=== PATIENT | female | born 1975 | race Caucasian/White ===

== ENCOUNTER 2017-10-01 17:47 | Observation (INO) ==
[2017-10-01] MEDS ORDERED: 0.9 % Sodium Chloride 1,000 ML IVC ONE (22:32)
--- NOTE | 2017-10-01 22:39 | Emergency Department Note ---
Disposition Clinical Impression: Failure to thrive in adult Disposition: Admitted As Inpatient Condition: Good General Adult HPI - General Chief complaint: ED Psychiatric Symptoms Stated complaint: "Something telling her not to eat" Time Seen by Provider: 10/01/17 22:22 Source: patient, family Mode of arrival: private vehicle Limitations: no limitations Nursing Notes Reviewed: Yes Vital Signs Reviewed: Yes - History of Present Illness Pt Subjective Complaint: Pt states, "I am here because my psychiatrist told my family to bring me." Onset (ago): week(s) Location: other (no pain, just won't eat and won't take meds) Pain Scale: 0 Improves with: nothing Worsens with: nothing Associated symptoms: Reports: denies other symptoms Treatments Prior to Arrival: none - Related Data Home Medications Medication Instructions Recorded Confirmed Metoprolol [Lopressor] 50 mg PO HS 01/06/17 09/25/17 Metoprolol [Lopressor] 100 mg PO DAILY 01/06/17 09/25/17 metFORMIN [Glucophage] 500 mg PO BIDWM 01/06/17 09/25/17 Tobramycin/Dex Opth OINT [Tobradex 0 gm RIGHT EYE BID 04/02/17 09/25/17 Opth OINT] Zolpidem [Ambien] 5 mg PO HS 09/06/17 09/25/17 Previous Rx's Medication Instructions Recorded OLANZapine [Zyprexa Zydis] 10 mg PO HS 7 Days #7 tab.rapdis 09/21/17 Allergies Allergy/AdvReac Type Severity Reaction Status Date / Time Sulfa (Sulfonamide Allergy Hives Verified 09/20/17 16:46 Antibiotics) All systems ED: reviewed and negative except as stated. Review of Systems: As Per HPI Constitutional: Reports: weakness. Denies: fever, chills Cardiovascular: Denies: chest pain, palpitations, dyspnea on exertion, orthopnea , edema, syncope Respiratory: Denies: cough, dyspnea, wheezes Gastrointestinal: Denies: abdominal pain, nausea, vomiting Musculoskeletal: Denies: back pain, neck pain, joint swelling, arthralgia, myalgia Neurological: Denies: headache, weakness, numbness, paresthesias Hematological/Lymphatic: Denies: easy bleeding, easy bruising Past Medical History - Past Medical History Attestation: Yes The following information was validated with the patient. Source: patient Medical history: Reports: diabetes, hypertension, other Surgical history: Reports: non-contributory Psychiatric history: Reports: depression, other - Social History Smoking Status: Former smoker Smokeless Tobacco Status: No Alcohol use: Reports: none Drug use: Reports: none Physical Exam - General Limitations: no limitations General appearance: alert, in no apparent distress - Head Head exam: atraumatic, normocephalic, normal inspection - Eye Eye exam: Absent: scleral icterus, conjunctival injection, periorbital swelling - ENT ENT exam: mucous membranes dry - Neck Neck exam: Present: normal inspection, full ROM, trachea midline. Absent: meningismus - Chest Chest inspection: Present: normal inspection - Respiratory Respiratory exam: Present: normal lung sounds bilaterally. Absent: respiratory distress - Cardiovascular Cardiovascular exam: Present: regular rate, normal rhythm, normal heart sounds - Abdominal Exam Abdominal exam: Present: soft, Non-Tender - Extremities Exam Extremities exam: Present: normal inspection - Neurological Exam Neurological exam: Present: alert, oriented X3, CN II-XII intact - Psychiatric Psychiatric exam: Present: normal mood, flat affect - Skin Skin exam: Present: warm, dry, intact, normal color Course Course Narrative: PAtient presents from home with family for evaluatiuon of anorexia +/- auditory hallucinations. This is the patient's third evaluation for same. She tells me that she is here because her psychiatrist was concerned about dehydration and other potential problems from not taking her medications. Her states that she says there are voices telling her not to eat and that the food is poisoned. Labs and fluids have been ordered. Physical exam is benign. Labs indicate dehydration. EKG normal, unchanged. Will admit for FTT. Vital Signs Temperature 98.3 F 10/01/17 17:49 Pulse Rate 85 10/01/17 17:49 Respiratory Rate 16 10/01/17 17:49 Blood Pressure 94/54 10/01/17 17:49 O2 Sat by Pulse Oximetry 98 10/01/17 17:49 Temperature 97.9 F 10/02/17 03:25 Pulse Rate 74 10/02/17 03:25 Respiratory Rate 16 10/02/17 03:25 Blood Pressure 91/60 10/02/17 03:25 O2 Sat by Pulse Oximetry 95 10/02/17 03:25 Oxygen Delivery Oxygen Delivery Room Air Medical Decision Making - Medical Records Medical records reviewed: Yes I reviewed the patient's medical records. - Lab Data Lab results reviewed: Yes I reviewed the patient's lab results. Lab results narrative: Laboratory Last Values WBC 11.4 K/mcL (4.3-11.1) H 10/01/17 22:48 RBC 5.92 M/mcL (3.82-4.97) H 10/01/17 22:48 Hgb 17.1 g/dL (11.5-15.4) H 10/01/17 22:48 Hct 52.8 % (35.3-44.9) H 10/01/17 22:48 MCV 89.2 fL (83.0-100.0) 10/01/17 22:48 MCH 28.9 pg (28.0-33.3) 10/01/17 22:48 MCHC 32.4 g/dL (31.6-35.5) 10/01/17 22:48 RDW 18.3 % (11.5-14.5) H 10/01/17 22:48 Plt Count 237 K/mcL (140-400) 10/01/17 22:48 MPV 13.4 fL (9.4-12.4) H 10/01/17 22:48 Immature Gran % 0.4 % (0-4) 10/01/17 22:48 Seg Neutrophils % 47.7 % 10/01/17 22:48 Lymphocytes % 36.3 % 10/01/17 22:48 Monocytes % 13.8 % 10/01/17 22:48 Eosinophils % 1.1 % 10/01/17 22:48 Basophils % 0.7 % 10/01/17 22:48 Neutrophils # 5.4 K/mcL (1.6-8.9) 10/01/17 22:48 Lymphocytes # 4.1 K/mcL (0.6-4.6) 10/01/17 22:48 Monocytes # 1.6 K/mcL (0.0-1.3) H 10/01/17 22:48 Eosinophils # 0.1 K/mcL (0.0-0.6) 10/01/17 22:48 Basophils # 0.1 K/mcL (0.0-0.2) 10/01/17 22:48 Sodium 146 mEq/L (136-145) H 10/01/17 22:48 Potassium 3.6 mEq/L (3.5-5.1) 10/01/17 22:48 Chloride 105 mEq/L (98-107) 10/01/17 22:48 Carbon Dioxide 25 mEq/L (23-29) 10/01/17 22:48 BUN 10 mg/dL (6-20) 10/01/17 22:48 Creatinine 0.77 mg/dL (0.60-1.20) 10/01/17 22:48 Est GFR ( Amer) > 60 (> 60) 10/01/17 22:48 Est GFR (Non-Af Amer) > 60 (> 60) 10/01/17 22:48 BUN/Creatinine Ratio 13 (6-26) 10/01/17 22:48 Glucose 72 mg/dL (70-105) 10/01/17 22:48 Calculated Osmolality 300 (280-300) 10/01/17 22:48 Calcium 9.7 mg/dL (8.6-10.3) 10/01/17 22:48 Urine Color Hickory (Yellow) A 10/01/17 23:15 Urine Clarity Cloudy (Clear) A 10/01/17 23:15 Urine pH 6.0 pH Units (5.0-8.0) 10/01/17 23:15 Ur Specific Jackson 1.029 (1.010-1.025) H 10/01/17 23:15 Urine Protein 30 mg/dL (Neg-Trace) H 10/01/17 23:15 Urine Glucose (UA) Normal mg/dL (Normal) 10/01/17 23:15 Urine Ketones 80 mg/dL (Negative) H 10/01/17 23:15 Urine Blood Negative (Negative) 10/01/17 23:15 Urine Nitrite Negative (Negative) 10/01/17 23:15 Urine Bilirubin Large (Negative) H 10/01/17 23:15 Urine Urobilinogen 2.0 mg/dL (Normal) H 10/01/17 23:15 Ur Leukocyte Esterase Small (Negative) H 10/01/17 23:15 Urine Microscopic WBC 5-15 per hpf (0-3) H 10/01/17 23:15 Ur Squamous Epith Cells Many per lpf (None-Few) H 10/01/17 23:15 Urine Bacteria Moderate per hpf (None-Few) H 10/01/17 23:15 Urine Test Negative (Negative) 10/01/17 23:15 Salicylates < 2.5 mg/dL (15.0-30.0) L 10/01/17 22:48 Urine Opiates Screen Negative ng/mL (Mvoifn=073) 10/01/17 23:15 Acetaminophen < 10 mcg/mL (10-20) L 10/01/17 22:48 Ur Barbiturates Screen Negative ng/mL (Ethspo=239) 10/01/17 23:15 Ur Phencyclidine Scrn Negative ng/mL (Cutoff=25) 10/01/17 23:15 Ur Amphetamines Screen Negative ng/mL (Ewytym=9938) 10/01/17 23:15 U Benzodiazepines Scrn Negative ng/mL (Vetqwr=002) 10/01/17 23:15 Urine Cocaine Screen Negative ng/mL (Cutoff= 300) 10/01/17 23:15 U Marijuana (THC) Screen Negative ng/mL (Cutoff = 50) 10/01/17 23:15 Ethyl Alcohol < 10 mg/dL (Less than 10) 10/01/17 22:48 Result diagrams: 10/01/17 22:48 10/01/17 22:48 Lab Results 10/01/17 10/01/17 10/01/17 Range/Units 22:48 22:48 23:15 WBC 11.4 H (4.3-11.1) K/mcL RBC 5.92 H (3.82-4.97) M/mcL Hgb 17.1 H (11.5-15.4) g/dL Hct 52.8 H (35.3-44.9) % MCV 89.2 (83.0-100.0) fL MCH 28.9 (28.0-33.3) pg MCHC 32.4 (31.6-35.5) g/dL RDW 18.3 H (11.5-14.5) % Plt Count 237 (140-400) K/mcL MPV 13.4 H (9.4-12.4) fL Immature Gran % 0.4 (0-4) % Seg Neutrophils % 47.7 % Lymphocytes % 36.3 % Monocytes % 13.8 % Eosinophils % 1.1 % Basophils % 0.7 % Neutrophils # 5.4 (1.6-8.9) K/mcL Lymphocytes # 4.1 (0.6-4.6) K/mcL Monocytes # 1.6 H (0.0-1.3) K/mcL Eosinophils # 0.1 (0.0-0.6) K/mcL Basophils # 0.1 (0.0-0.2) K/mcL Sodium 146 H (136-145) mEq/L Potassium 3.6 (3.5-5.1) mEq/L Chloride 105 (98-107) mEq/L Carbon Dioxide 25 (23-29) mEq/L BUN 10 (6-20) mg/dL Creatinine 0.77 (0.60-1.20) mg/dL Est GFR ( Amer) > 60 (> 60) Est GFR (Non-Af Amer) > 60 (> 60) BUN/Creatinine Ratio 13 (6-26) Glucose 72 (70-105) mg/dL Calculated Osmolality 300 (280-300) Calcium 9.7 (8.6-10.3) mg/dL Urine Color [place]ickory A (Yellow) Urine Clarity Cloudy A (Clear) Urine pH 6.0 (5.0-8.0) pH Units Ur Specific Jackson 1.029 H (1.010-1.025) Urine Protein 30 H (Neg-Trace) mg/dL Urine Glucose (UA) Normal (Normal) mg/dL Urine Ketones 80 H (Negative) mg/dL Urine Blood Negative (Negative) Urine Nitrite Negative (Negative) Urine Bilirubin Large H (Negative) Urine Urobilinogen 2.0 H (Normal) mg/dL Ur Leukocyte Esterase Small H (Negative) Urine Microscopic WBC 5-15 H (0-3) per hpf Ur Squamous Epith Cells Many H (None-Few) per lpf Urine Bacteria Moderate H (None-Few) per hpf Urine Test (Negative) Salicylates < 2.5 L (15.0-30.0) mg/dL Urine Opiates Screen (Umjvcm=316) ng/mL Acetaminophen < 10 L (10-20) mcg/mL Ur Barbiturates Screen (Bysdee=533) ng/mL Ur Phencyclidine Scrn (Cutoff=25) ng/mL Ur Amphetamines Screen (Chqzpk=7872) ng/mL U Benzodiazepines Scrn (Ehlpqr=222) ng/mL Urine Cocaine Screen (Cutoff= 300) ng/mL U Marijuana (THC) Screen (Cutoff = 50) ng/mL Ethyl Alcohol < 10 (Less than 10) mg/dL 10/01/17 10/01/17 Range/Units 23:15 23:15 WBC (4.3-11.1) K/mcL RBC (3.82-4.97) M/mcL Hgb (11.5-15.4) g/dL Hct (35.3-44.9) % MCV (83.0-100.0) fL MCH (28.0-33.3) pg MCHC (31.6-35.5) g/dL RDW (11.5-14.5) % Plt Count (140-400) K/mcL MPV (9.4-12.4) fL Immature Gran % (0-4) % Seg Neutrophils % % Lymphocytes % % Monocytes % % Eosinophils % % Basophils % % Neutrophils # (1.6-8.9) K/mcL Lymphocytes # (0.6-4.6) K/mcL Monocytes # (0.0-1.3) K/mcL Eosinophils # (0.0-0.6) K/mcL Basophils # (0.0-0.2) K/mcL Sodium (136-145) mEq/L Potassium (3.5-5.1) mEq/L Chloride (98-107) mEq/L Carbon Dioxide (23-29) mEq/L BUN (6-20) mg/dL Creatinine (0.60-1.20) mg/dL Est GFR ( Amer) (> 60) Est GFR (Non-Af Amer) (> 60) BUN/Creatinine Ratio (6-26) Glucose (70-105) mg/dL Calculated Osmolality (280-300) Calcium (8.6-10.3) mg/dL Urine Color (Yellow) Urine Clarity (Clear) Urine pH (5.0-8.0) pH Units Ur Specific Jackson (1.010-1.025) Urine Protein (Neg-Trace) mg/dL Urine Glucose (UA) (Normal) mg/dL Urine Ketones (Negative) mg/dL Urine Blood (Negative) Urine Nitrite (Negative) Urine Bilirubin (Negative) Urine Urobilinogen (Normal) mg/dL Ur Leukocyte Esterase (Negative) Urine Microscopic WBC (0-3) per hpf Ur Squamous Epith Cells (None-Few) per lpf Urine Bacteria (None-Few) per hpf Urine Test Negative (Negative) Salicylates (15.0-30.0) mg/dL Urine Opiates Screen Negative (Wfflgz=087) ng/mL Acetaminophen (10-20) mcg/mL Ur Barbiturates Screen Negative (Sbzwwr=300) ng/mL Ur Phencyclidine Scrn Negative (Cutoff=25) ng/mL Ur Amphetamines Screen Negative (Bqoler=4571) ng/mL U Benzodiazepines Scrn Negative (Akkvsb=335) ng/mL Urine Cocaine Screen Negative (Cutoff= 300) ng/mL U Marijuana (THC) Screen Negative (Cutoff = 50) ng/mL Ethyl Alcohol (Less than 10) mg/dL Attestation Statement - Attestation Attestation: I examined this patient and my medical decision-making was reviewed with the Resident Physician. I agree with the documented findings, disposition and treatment plan as described except to the extent set forth below. Patient has underlying psychiatric disorder and will not take her psychiatric medications which is prohibiting her from eating. She is refusing to eat anything. She is drinking. She is not overtly dehydrated at this time. We will admit for failure to thrive and for psychiatric consultation.
[2017-10-01 23:01] LABS: Basophils # 0.1 K/mcL (0.0-0.2); Basophils % 0.7 %; Eosinophils # 0.1 K/mcL (0.0-0.6); Eosinophils % 1.1 %; Hematocrit 52.8 % (35.3-44.9); Hemoglobin 17.1 g/dL (11.5-15.4); Immature Granulocytes % 0.4 % (0-4); Lymphocytes # 4.1 K/mcL (0.6-4.6); Lymphocytes % 36.3 %; Mean Corpuscular HGB Conc 32.4 g/dL (31.6-35.5); Mean Corpuscular Hemoglobin 28.9 pg (28.0-33.3); Mean Corpuscular Volume 89.2 fL (83.0-100.0); Mean Platelet Volume 13.4 fL (9.4-12.4); Monocytes # 1.6 K/mcL (0.0-1.3); Monocytes % 13.8 %; Neutrophils # 5.4 K/mcL (1.6-8.9); Platelet Count 237 K/mcL (140-400); Red Blood Count 5.92 M/mcL (3.82-4.97); Red Cell Distribution Width 18.3 % (11.5-14.5); Segmented Neutrophils % 47.7 %
[2017-10-01 23:19] LABS: Acetaminophen < 10 mcg/mL (10-20); BUN/Creatinine Ratio 13 (6-26); Blood Urea Nitrogen 10 mg/dL (6-20); Calcium 9.7 mg/dL (8.6-10.3); Carbon Dioxide 25 mEq/L (23-29); Chloride 105 mEq/L (98-107); Ethanol < 10 mg/dL (Less than 10); Glucose 72 mg/dL (70-105); Osmolality,Calculated 300 (280-300); Potassium 3.6 mEq/L (3.5-5.1); Salicylate < 2.5 mg/dL (15.0-30.0); Sodium 146 mEq/L (136-145); eGFR For African Americans > 60 (> 60); eGFR For Non-African Americans > 60 (> 60)
[2017-10-01 23:23] LABS: Bilirubin,Urine Large (Negative); Blood,Urine Negative (Negative); Clarity,Urine Cloudy (Clear); Color,Urine Orange (Yellow); Glucose,Urine (UA) Normal (Normal); Ketones,Urine 80 mg/dL (Negative); Leukocyte Esterase,Urine Small (Negative); Nitrite,Urine Negative (Negative); Protein,Urine 30 mg/dL (Neg-Trace); Specific Gravity,Urine 1.029 (1.010-1.025)
[2017-10-01 23:26] LABS: Bacteria,Urine Moderate per hpf (None-Few); Squamous Epithelial Cell,Urine Many per lpf (None-Few)
[2017-10-01 23:32] LABS: Amphetamine Screen,Urine Negative ng/mL (Cutoff=1000); Barbiturate Screen,Urine Negative ng/mL (Cutoff=200); Benzodiazepines Screen,Urine Negative ng/mL (Cutoff=200); Cannabinoid Screen,Urine Negative ng/mL (Cutoff = 50); Cocaine Screen,Urine Negative ng/mL (Cutoff= 300); Opiate Screen,Urine Negative ng/mL (Cutoff=300); Phencyclidine Screen,Urine Negative ng/mL (Cutoff=25)
[2017-10-02] MEDS ORDERED: 0.9 % Sodium Chloride 1,000 ML IVC ONE (00:51)
[2017-10-02] MEDS ORDERED: Acetaminophen 325 MG TABLET PO PRN (03:18)
[2017-10-02] MEDS ORDERED: Naloxone 0.4 MG/ML INJ IVP PRN (03:18)
[2017-10-02] MEDS ORDERED: D5% in Water 1,000 ML IVC PRN (03:21)
[2017-10-02] MEDS ORDERED: Dextrose Gel 15 GM/37.5 ML TUBE PO PRN ×2 (03:21)
[2017-10-02] MEDS ORDERED: *HR* Dextrose 50 % in Water (Syg) 50 ML SYRINGE IVP PRN (03:21)
--- NOTE | 2017-10-02 03:24 | Internal Med History&Physical ---
Date of Encounter: 10/02/17 Time of Encounter: 03:22 Internal Medicine - H&P: HPI Chief complaint: Refuses to eat Admitted From: Emergency Dept Plans for Post Hospital Care: Home History of present illness: Ms. Kay is a 41 year old female with h/o- DM, HTN, depression and possible schizophrenia, was brought in by significant other, with c/o- poor oral intake. patient is sleeping at the time of my evaluation, history is obtained from the SO at bedside. She has h/o- depression for at least the last 5 years and he reports she was stable on Seroquel. She started having auditory and visual hallucinations about 5 months ago, "spirits telling her to do something and she was talking to the spirits". She has been seeing Psychiatry since then and per family, she has been tried on multiple meds, with no results. SHe then started reporting that the food at home was being poisoned, about 1.5 months ago, and insisted on eating restaurant food, which she may or may not eat. Over the last 2 weeks, she completely stopped eating any food, has not been taking her meds. She dose comply with other chores of hygiene like taking a shower and getting dressed. She has no physical complaints except generalized weakness. Past Med Surg Social Fam HX - Past Medical History Source: obtained from family Medical history: diabetes, hypertension, other Psychiatric history: depression, other - Past Surgical History Surgical History: non-contributory, hysterectomy, orthopedic, other - Social History Smoking Status: Former smoker Smokeless Tobacco Status: No Alcohol use: none Drug use: none Occupational status: disabled Current living situation: Home, With Family Activity Level: Independent ambulation Recent Out of Country Travel Within the Last 8 Weeks: No Exposure or Possible Exposure to Illness During Travel: No - Family History Father Hx Family Endocrine Disorder: Yes (diabetes) Internal Medicine - H&P: Meds Metoprolol [Lopressor] 50 mg PO HS 01/06/17 [History] Metoprolol [Lopressor] 100 mg PO DAILY 01/06/17 [History] metFORMIN [Glucophage] 500 mg PO BIDWM 01/06/17 [History] Tobramycin/Dex Opth OINT [Tobradex Opth OINT] 0 gm RIGHT EYE BID 04/02/17 [ History] Zolpidem [Ambien] 5 mg PO HS 04/12/18 [History] OLANZapine [Zyprexa Zydis] 10 mg PO HS 7 Days #7 tab.rapdis 09/21/17 [Rx] 3 Allergy/AdvReac Type Severity Reaction Status Date / Time Sulfa (Sulfonamide Allergy Hives Verified 09/20/17 16:46 Antibiotics) All Systems PM: A 10-system review of systems was performed and is negative for pertinent findings except as documented above in the HPI. - Constitutional Constitutional: no chills, no fever(s), no night sweats - EENT Eyes: no change in vision, no discharge, no pain, no photophobia Ears: no ear discharge, no ear pain, no tinnitus Nose, mouth and throat: no dysphagia, no nasal discharge, no neck pain, no sore throat - Cardiovascular Cardiovascular ROS IM: no chest pain, no diaphoresis, no dyspnea, no lightheadedness, no palpitations, no syncope - Respiratory Respiratory: no cough, no dyspnea, no wheezing, no excessive phlegm production - Gastrointestinal Gastrointestinal: no abdominal pain, no diarrhea, no hematemesis, no hematochezia, no melena, no nausea, no vomiting - Genitourinary Genitourinary: no change in urinary stream, no dysuria, no flank pain, no hematuria - Musculoskeletal Musculoskeletal ROS IM: no numbness, no tingling - Integumentary Integumentary IM: no rash, no unusual bruising - Neurological Neurological ROS: no confusion, no convulsions, no focal weakness, no numbness, no tingling, no tremor(s) - Psychiatric Psychiatric: auditory hallucinations, behavioral changes, change in appetite - Hematologic/Lymphatic Hematologic/Lymphatic: no easy bruising - Constitutional Vitals: Temp Pulse Resp BP Pulse Ox 98.3 F 85 16 129/90 98 10/01/17 17:49 10/01/17 17:49 10/02/17 02:16 10/02/17 02:16 10/01/17 17:49 General appearance: Present: A&O X 1 (legally blind; somnolent). Absent: answers questions appropriately - Respiratory Respiratory exam: Present: CTAB. Absent: accessory muscle use, rales, rhonchi, wheezes - Cardiovascular Cardiovascular exam: Present: RRR, +S1, +S2. Absent: diastolic murmur, gallop, rubs, systolic murmur - GI/Abdominal GI/Abdominal exam: Present: normal bowel sounds, soft, no peritoneal signs. Absent: distended, tenderness - Extremities Exam Extremities exam: Present: full ROM, warm, radial pulses palpable and symmetrical. Absent: calf tenderness, cyanotic, pedal edema - Neurological Exam Neurological exam: Present: CN II-XII intact, no focal deficits. Absent: pronater drift, facial droop, speech deficit - Skin Skin exam: Present: dry, intact Internal Med - H&P Results - Labs CBC & Chem 7: 10/02/17 04:24 10/02/17 04:24 - Assessment and plan (1) UTI (urinary tract infection) Current Visit: Yes Status: Suspected Assessment and plan: UA suggestive of UTI, send urine culture; start IV Rocephin; Qualifiers: Urinary tract infection type: site unspecified Hematuria presence: without hematuria Qualified Code(s): N39.0 - Urinary tract infection, site not specified (2) Failure to thrive in adult Current Visit: Yes Status: Acute Assessment and plan: likely secondary to psychiatry issues; IV hydration and supportive care; Psychiatry consult; (3) Erythrocytosis Current Visit: Yes Status: Chronic Assessment and plan: could be volume depletion vs sleep apnea; was evaluated by Hematology for possible primary erythrocytosis, workup negative; (4) Auditory hallucinations Current Visit: Yes Status: Chronic Assessment and plan: psychiatry evaluation; (5) Hypernatremia Current Visit: Yes Status: Acute Assessment and plan: due to dehydration and poor oral intake; continue IV hydration; (6) Essential hypertension Current Visit: Yes Status: Chronic Assessment and plan: BP acceptable; home med rec not available; (7) Diabetes mellitus Current Visit: Yes Status: Chronic Assessment and plan: Accucheck blood glucose monitoring with sliding scale insulin as needed; diabetic diet as tolerated; Qualifiers: Diabetes mellitus type: type 2 Diabetes mellitus rat exterminator insulin use: without rat exterminator use Diabetes mellitus complication status: with unspecified complications Qualified Code(s): E11.8 - Type 2 diabetes mellitus with unspecified complications (8) Depression Current Visit: Yes Status: Chronic Assessment and plan: home med rec unavailable; Qualifiers: Depression Type: unspecified Qualified Code(s): F32.9 - Major depressive disorder, single episode, unspecified - Time Spent With Patient Total time spent is greater than 50% in coordination of care (as documented) at patient's floor/unit and/or counseling patient:
[2017-10-02] MEDS: D5% in 0.45% NACL 1,000 ML IVC SCH ×2 (04:36→17:56)
[2017-10-02 05:26] LABS: Basophils # 0.1 K/mcL (0.0-0.2); Basophils % 0.5 %; Eosinophils # 0.2 K/mcL (0.0-0.6); Eosinophils % 1.3 %; Immature Granulocytes % 0.2 % (0-4); Lymphocytes # 5.4 K/mcL (0.6-4.6); Lymphocytes % 43.4 %; Mean Corpuscular HGB Conc 33.3 g/dL (31.6-35.5); Mean Corpuscular Hemoglobin 29.1 pg (28.0-33.3); Mean Corpuscular Volume 87.6 fL (83.0-100.0); Mean Platelet Volume 14.2 fL (9.4-12.4); Monocytes # 1.7 K/mcL (0.0-1.3); Monocytes % 13.6 %; Neutrophils # 5.1 K/mcL (1.6-8.9); Platelet Count 183 K/mcL (140-400); Red Blood Count 5.25 M/mcL (3.82-4.97); Red Cell Distribution Width 17.2 % (11.5-14.5)
[2017-10-02 05:28] LABS: Hemoglobin 15.3 g/dL (11.5-15.4)
[2017-10-02] MEDS: *HR* Heparin 5,000 UNIT/ML VIAL SQ SCH ×3 (06:06→20:52)
[2017-10-02] MEDS: Insulin LISPRO 300 UNITS/3 ML VIAL SQ SCH ×3 (06:07→16:17)
[2017-10-02 06:25] LABS: BUN/Creatinine Ratio 13 (6-26); Blood Urea Nitrogen 8 mg/dL (6-20); Calcium 8.4 mg/dL (8.6-10.3); Carbon Dioxide 19 mEq/L (23-29); Chloride 111 mEq/L (98-107); Glucose 98 mg/dL (70-105); Magnesium 1.7 mg/dL (1.6-2.6); Osmolality,Calculated 296 (280-300); Potassium 4.1 mEq/L (3.5-5.1); Sodium 144 mEq/L (136-145); eGFR For African Americans > 60 (> 60); eGFR For Non-African Americans > 60 (> 60)
[2017-10-02 08:05] LABS: Estimated Average Glucose 114 mg/dl; Hemoglobin A1C 5.6 %
[2017-10-02] MEDS: cefTRIAXone 1,000 MG in Water for inj. (sterile) 20 ML 10 ML IVP SCH (08:40)
--- NOTE | 2017-10-02 13:42 | Consult Note ---
Date of Encounter: 10/02/17 Time of Encounter: 12:20 Assessment & Recommendation (1) Schizophrenia Current visit: Yes Status: Acute Assessment & Recommendation: Patient is reporting delusional content. Has responded well to antipsychotics in the past. She is also reporting delusions that if she eats something her children will be harmed. These may be similar to catatonic symptoms and I recommend starting a low-dose benzo, such as 0.5 mg of Ativan twice a day to be increased as patient tolerates. We need to monitor for oversedation. Given the level of delusions and her inability or unwillingness to take psychiatric medication, I recommend psychiatric stabilization once medically cleared. Encourage patient to take by mouth antipsychotics such as Zyprexa and the Remeron which may stimulate sleep and appetite. Qualifiers: Schizophrenia type: unspecified Qualified Code(s): F20.9 - Schizophrenia, unspecified (2) Failure to thrive in adult Current visit: Yes Status: Acute History of Present Illness Patient: new to practice Requesting Physician: Elza Hogan Reason for consult: delusions History of present illness: Ms. Kay is a 41 year old female with a history of schizophrenia who presented to the hospital secondary to the patient not eating or drinking anything for about 2 weeks. Patient is a poor historian but boyfriend is with the patient was able to give much of her history. He reports that patient has been not doing well for several months. She was stable on Seroquel in the remote past but then started not to do well. She was tried on Risperdal and did not do well with this medication. About a week and a half ago the patient stopped eating because she is afraid that she is being poisoned. She also has verbalized to family that she thinks if she eats something that one of her children will be harmed in some way. Patient has been refusing her antipsychotic medication. She was seen by her outpatient psychiatrist and restarted on Zyprexa and Remeron which have been helpful to her in the past. Boyfriend reports she has been refusing this medicine. Patient states to this provider she might be willing to try medications. She reports she is willing to try a medication for anxiety. 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 Spoke with patient's outpatient psychiatrist with her consent. Provider reports that patient has not been doing well for the past few months. She is refusing medication. Patient had a UTI that may have exacerbated some of her psychiatric issues. She has been worked up several times medically without results. Patient has not done well with Risperdal. Provider recommended potentially using long-acting injectable medications secondary to patient's noncompliance. CC: Elza Hogan Past Med Surg Social Fam HX - Past Medical History Medical history: diabetes, hypertension, other - Past Psychiatric History Psychiatric history: Reports: schizophrenia. Denies: prior suicide attempt Family psychiatric history: No Family History of Suicide: None - Past Surgical History Surgical History: non-contributory, hysterectomy, orthopedic, other - Social History Smoking Status: Former smoker Smokeless Tobacco Status: No Alcohol use: none Drug use: none - Family History Father Hx Family Endocrine Disorder: Yes (diabetes) Medications & Allergies metFORMIN [Glucophage] 500 mg PO BIDWM 01/06/17 [History] OLANZapine [Zyprexa Zydis] 10 mg PO HS 7 Days #7 tab.rapdis 09/21/17 [Rx] Haloperidol Oral Conc [Haldol] 2 mg PO DAILY 10/02/17 [History] Metoprolol Succinate [Toprol Xl] 100 mg PO DAILY 10/02/17 [History] Mirtazapine [Remeron] 15 mg PO HS 10/02/17 [History] risperiDONE [RisperDAL] 0.25 mg PO TID 10/02/17 [History] 3 Allergy/AdvReac Type Severity Reaction Status Date / Time Sulfa (Sulfonamide Allergy Hives Verified 09/20/17 16:46 Antibiotics) Review of Systems ROS limited: due to patient condition Psychiatric: Reports: depression, anxiety, hopelessness, other (Delusions) Psychiatry Exam - Constitutional Vitals: Temp Pulse Resp BP Pulse Ox 98.0 F 66 14 94/63 94 10/02/17 11:37 10/02/17 11:37 10/02/17 11:37 10/02/17 11:37 10/02/17 11:37 General appearance: unkempt - Musculoskeletal Gait: other (Patient lying in bed.) Station: stooped Strength & Tone: mild weakness - Psychiatric Patient Orientation: Yes Person, Yes Place Level of alertness: Alert Behavior: withdrawn Psychomotor activity: Slowed Eye Contact: Diverts Contact Mood Description: Other (Patient unable to report mood.) Affect description: flat, dysphoric Speech Volume: Soft/Quiet Speech pattern: mumbled Language & Vocabulary: limited Thought Process: [place], Slowed Thinking Thought Content: Yes Paranoid delusion Perceptual Disturbances: No Auditory hallucinations, No Visual hallucinations Attention Span Ability: Unable to Focus, Unable to Sustain Attention Memory Description: Immediate Impaired, Recent Impaired, Remote Impaired Patient Reliability: Not Reliable Historian Fund of knowledge: Yes average Intelligence Estimate: Average Judgment: Poor Insight: None Results - Labs Labs: Laboratory Last Values WBC 12.3 K/mcL (4.3-11.1) H 10/02/17 04:24 RBC 5.25 M/mcL (3.82-4.97) H 10/02/17 04:24 Hgb 15.3 g/dL (11.5-15.4) D 10/02/17 04:24 Hct 46.0 % (35.3-44.9) H 10/02/17 04:24 MCV 87.6 fL (83.0-100.0) 10/02/17 04:24 MCH 29.1 pg (28.0-33.3) 10/02/17 04:24 MCHC 33.3 g/dL (31.6-35.5) 10/02/17 04:24 RDW 17.2 % (11.5-14.5) H 10/02/17 04:24 Plt Count 183 K/mcL (140-400) 10/02/17 04:24 MPV 14.2 fL (9.4-12.4) H 10/02/17 04:24 Immature Gran % 0.2 % (0-4) 10/02/17 04:24 Seg Neutrophils % 41.0 % 10/02/17 04:24 Lymphocytes % 43.4 % 10/02/17 04:24 Monocytes % 13.6 % 10/02/17 04:24 Eosinophils % 1.3 % 10/02/17 04:24 Basophils % 0.5 % 10/02/17 04:24 Neutrophils # 5.1 K/mcL (1.6-8.9) 10/02/17 04:24 Lymphocytes # 5.4 K/mcL (0.6-4.6) H 10/02/17 04:24 Monocytes # 1.7 K/mcL (0.0-1.3) H 10/02/17 04:24 Eosinophils # 0.2 K/mcL (0.0-0.6) 10/02/17 04:24 Basophils # 0.1 K/mcL (0.0-0.2) 10/02/17 04:24 Sodium 144 mEq/L (136-145) 10/02/17 04:24 Potassium 4.1 mEq/L (3.5-5.1) 10/02/17 04:24 Chloride 111 mEq/L (98-107) H 10/02/17 04:24 Carbon Dioxide 19 mEq/L (23-29) L 10/02/17 04:24 BUN 8 mg/dL (6-20) 10/02/17 04:24 Creatinine 0.62 mg/dL (0.60-1.20) 10/02/17 04:24 Est GFR ( Amer) > 60 (> 60) 10/02/17 04:24 Est GFR (Non-Af Amer) > 60 (> 60) 10/02/17 04:24 BUN/Creatinine Ratio 13 (6-26) 10/02/17 04:24 Glucose 98 mg/dL (70-105) 10/02/17 04:24 POC Glucose 122 mg/dL (70-99) H 10/02/17 12:07 Est Mean Plasma Glucose 114 mg/dl 10/02/17 04:24 Hemoglobin A1c 5.6 % (-5.6) 10/02/17 04:24 Calculated Osmolality 296 (280-300) 10/02/17 04:24 Calcium 8.4 mg/dL (8.6-10.3) L 10/02/17 04:24 Magnesium 1.7 mg/dL (1.6-2.6) 10/02/17 04:24 Urine Color [place] (Yellow) A 10/01/17 23:15 Urine Clarity Cloudy (Clear) A 10/01/17 23:15 Urine pH 6.0 pH Units (5.0-8.0) 10/01/17 23:15 Ur Specific [place] 1.029 (1.010-1.025) H 10/01/17 23:15 Urine Protein 30 mg/dL (Neg-Trace) H 05/07/18 23:15 Urine Glucose (UA) Normal mg/dL (Normal) 10/01/17 23:15 Urine Ketones 80 mg/dL (Negative) H 10/01/17 23:15 Urine Blood Negative (Negative) 10/01/17 23:15 Urine Nitrite Negative (Negative) 10/01/17 23:15 Urine Bilirubin Large (Negative) H 10/01/17 23:15 Urine Urobilinogen 2.0 mg/dL (Normal) H 10/01/17 23:15 Ur Leukocyte Esterase Small (Negative) H 10/01/17 23:15 Urine Microscopic WBC 5-15 per hpf (0-3) H 10/01/17 23:15 Ur Squamous Epith Cells Many per lpf (None-Few) H 10/01/17 23:15 Urine Bacteria Moderate per hpf (None-Few) H 10/01/17 23:15 Urine Test Negative (Negative) 10/01/17 23:15 Salicylates < 2.5 mg/dL (15.0-30.0) L 10/01/17 22:48 Urine Opiates Screen Negative ng/mL (Izrxfv=575) 10/01/17 23:15 Acetaminophen < 10 mcg/mL (10-20) L 10/01/17 22:48 Ur Barbiturates Screen Negative ng/mL (Cfwuxn=273) 10/01/17 23:15 Ur Phencyclidine Scrn Negative ng/mL (Cutoff=25) 10/01/17 23:15 Ur Amphetamines Screen Negative ng/mL (Pjtyml=8676) 10/01/17 23:15 U Benzodiazepines Scrn Negative ng/mL (Eclcdg=366) 10/01/17 23:15 Urine Cocaine Screen Negative ng/mL (Cutoff= 300) 10/01/17 23:15 U Marijuana (THC) Screen Negative ng/mL (Cutoff = 50) 10/01/17 23:15 Ethyl Alcohol < 10 mg/dL (Less than 10) 10/01/17 22:48 Consult Discharge Plan - Plan Referrals: NONE,PCP [Primary Care Provider] -
--- NOTE | 2017-10-02 15:53 | Electrocardiograph Report ---
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
--- NOTE | 2017-10-02 17:04 | Event Note ---
Date of Encounter: 10/02/17 Time of Encounter: 12:00 Patient was seen earlier this morning by hospitalist as well as psychiatry. Presently patient is alert and oriented to name and place she does not endorse any suicidal or homicidal ideations. However she does believe that if she eats harm will come to her children. She does endorse auditory hallucinations. Presently she denies any urinary symptoms chest pain or shortness of breath. Urinalysis did show UTI patient was initiated on Rocephin which we will continue pending culture sensitivity. Psychiatry recommending inpatient treatment once medically cleared. She was seen by dietary-we will initiate on dietary supplements per recommendations Presently patient is hemodynamically stable at this time.
[2017-10-03] MEDS: Insulin LISPRO 300 UNITS/3 ML VIAL SQ SCH ×5 (00:32→23:08)
[2017-10-03] MEDS: *HR* Heparin 5,000 UNIT/ML VIAL SQ SCH ×3 (05:42→20:48)
[2017-10-03 07:02] LABS: Basophils % 0.5 %; Eosinophils # 0.2 K/mcL (0.0-0.6); Eosinophils % 2.2 %; Hematocrit 45.7 % (35.3-44.9); Immature Granulocytes % 0.2 % (0-4); Lymphocytes # 3.8 K/mcL (0.6-4.6); Lymphocytes % 45.6 %; Mean Corpuscular HGB Conc 32.8 g/dL (31.6-35.5); Mean Corpuscular Hemoglobin 29.2 pg (28.0-33.3); Mean Corpuscular Volume 89.1 fL (83.0-100.0); Mean Platelet Volume 13.9 fL (9.4-12.4); Monocytes # 1.1 K/mcL (0.0-1.3); Monocytes % 13.5 %; Neutrophils # 3.1 K/mcL (1.6-8.9); Platelet Count 195 K/mcL (140-400); Red Blood Count 5.13 M/mcL (3.82-4.97); Red Cell Distribution Width 17.2 % (11.5-14.5)
[2017-10-03 07:24] LABS: BUN/Creatinine Ratio 10 (6-26); Blood Urea Nitrogen 6 mg/dL (6-20); Calcium 8.5 mg/dL (8.6-10.3); Carbon Dioxide 23 mEq/L (23-29); Chloride 107 mEq/L (98-107); Glucose 178 mg/dL (70-105); Osmolality,Calculated 290 (280-300); Potassium 2.8 mEq/L (3.5-5.1); Sodium 139 mEq/L (136-145); eGFR For African Americans > 60 (> 60); eGFR For Non-African Americans > 60 (> 60)
[2017-10-03] MEDS: cefTRIAXone 1,000 MG in Water for inj. (sterile) 20 ML 10 ML IVP SCH (08:47)
--- NOTE | 2017-10-03 12:14 | Psychiatry Progress Note ---
Date of Encounter: 10/03/17 Time of Encounter: 11:45 Subjective Interval history: Patient is seen today for follow-up. She remains anxious. She reports she is hearing voices telling her that if she eats something bad will happen to her son. She has been eating intermittently but not regularly. Patient also has UTI being treated by medical staff. Patient reports she is still having a lot of anxiety. Significant other reports that patient physically has difficulty getting on her own and he is concerned about her going down to the psychiatric unit where he will not be able to be with her all the time. Discussed with family that I talk to their outpatient psychiatrist who also agreed that patient will require inpatient stabilization. Review of Systems ROS limited: due to patient condition Psychiatric: Reports: depression, anxiety, auditory hallucinations, hopelessness , other (Delusions) Results - Vital Signs Vital Signs: Temp Pulse Resp BP Pulse Ox 98.3 F 90 20 114/78 97 10/03/17 11:13 10/03/17 11:13 10/03/17 11:13 10/03/17 11:13 10/03/17 11:13 - Labs Labs: Laboratory Results - last 24 hr 10/02/17 10/02/17 10/02/17 03:31 05:57 12:07 WBC RBC Hgb Hct MCV MCH MCHC RDW Plt Count MPV Immature Gran % Seg Neutrophils % Lymphocytes % Monocytes % Eosinophils % Basophils % Neutrophils # Lymphocytes # Monocytes # Eosinophils # Basophils # Sodium Potassium Chloride Carbon Dioxide BUN Creatinine Est GFR ( Amer) Est GFR (Non-Af Amer) BUN/Creatinine Ratio Glucose POC Glucose 80 98 122 H Calculated Osmolality Calcium 10/02/17 10/02/17 10/03/17 15:44 18:48 00:15 WBC RBC Hgb Hct MCV MCH MCHC RDW Plt Count MPV Immature Gran % Seg Neutrophils % Lymphocytes % Monocytes % Eosinophils % Basophils % Neutrophils # Lymphocytes # Monocytes # Eosinophils # Basophils # Sodium Potassium Chloride Carbon Dioxide BUN Creatinine Est GFR ( Amer) Est GFR (Non-Af Amer) BUN/Creatinine Ratio Glucose POC Glucose 114 H 94 98 Calculated Osmolality Calcium 10/03/17 10/03/17 10/03/17 04:30 05:29 05:29 WBC 8.2 RBC 5.13 H Hgb 15.0 Hct 45.7 H MCV 89.1 MCH 29.2 MCHC 32.8 RDW 17.2 H Plt Count 195 MPV 13.9 H Immature Gran % 0.2 Seg Neutrophils % 38.0 Lymphocytes % 45.6 Monocytes % 13.5 Eosinophils % 2.2 Basophils % 0.5 Neutrophils # 3.1 Lymphocytes # 3.8 Monocytes # 1.1 Eosinophils # 0.2 Basophils # 0.0 Sodium 139 Potassium 2.8 L Chloride 107 Carbon Dioxide 23 BUN 6 Creatinine 0.62 Est GFR ( Amer) > 60 Est GFR (Non-Af Amer) > 60 BUN/Creatinine Ratio 10 Glucose 178 H POC Glucose 107 H Calculated Osmolality 290 Calcium 8.5 L Assessment and Plan (1) Schizophrenia Current visit: Yes Status: Acute Plan: Continue hospitalization, Close observation Additional Plan: Consider starting Ativan to help with anxiety related to delusions. Recommend starting Invega 3 mg by mouth daily for psychotic symptoms. Recommend inpatient admission once medically stabilized. Risks, benefits, side effects, alternatives discussed w/pt: Yes Patient agreeable to treatment: Yes Qualifiers: Schizophrenia type: unspecified Qualified Code(s): F20.9 - Schizophrenia, unspecified (2) Failure to thrive in adult Current visit: Yes Status: Acute Consult Discharge Plan - Plan Referrals: NONE,PCP [Primary Care Provider] - Psychiatry Exam - Constitutional Vitals: Temp Pulse Resp BP Pulse Ox 98.3 F 90 20 114/78 97 10/03/17 11:13 10/03/17 11:13 10/03/17 11:13 10/03/17 11:13 10/03/17 11:13 General appearance: unkempt - Musculoskeletal Gait: other (Patient sitting in bed) Station: stooped Strength & Tone: mild weakness - Psychiatric Patient Orientation: Yes Person, Yes Place Level of alertness: Alert Behavior: calm, cooperative Psychomotor activity: Slowed Eye Contact: Diverts Contact Mood Description: Anxious Affect description: flat Speech Volume: Soft/Quiet Speech pattern: slowed Language & Vocabulary: limited Thought Process: Thought Blocking, [place], Slowed Thinking Thought Content: No Suicidal ideation, No Homicidal ideation, Yes Paranoid delusion Perceptual Disturbances: Yes Reacting to internal stimuli, Yes Auditory hallucinations Attention Span Ability: Unable to Focus, Unable to Sustain Attention Memory Description: Immediate Intact, Recent Impaired, Remote Impaired Patient Reliability: Questionable Historian Fund of knowledge: No abstraction ability, Yes average, No aware of current events Intelligence Estimate: Average Judgment: Poor Insight: None
--- NOTE | 2017-10-03 13:31 | Internal Med Progress Note ---
Date of Encounter: 10/03/17 Time of Encounter: 13:29 - Assessment and plan (1) Erythrocytosis Current Visit: Yes Status: Chronic Assessment and plan: could be volume depletion vs sleep apnea; was evaluated by Hematology for possible primary erythrocytosis, workup negative; (2) Failure to thrive in adult Current Visit: Yes Status: Acute Assessment and plan: most likely secondary to psychiatry issues- continue IV hydration and supportive care-has been seen by dietary nutritional supplementation recommended Has also been evaluated by psychiatry -patient will be transferred to once medically stable. (3) Auditory hallucinations Current Visit: Yes Status: Chronic Assessment and plan: Continues to experience auditory hallucinations -hearing voices telling her not to eat otherwise her children will be harmed psychiatry evaluated patient; recommending inpatient treatment once medically cleared (4) Hypernatremia Current Visit: Yes Status: Acute Assessment and plan: due to dehydration and poor oral intake; this has improved continue IV hydration (5) Essential hypertension Current Visit: Yes Status: Chronic Assessment and plan: BP acceptable; home med rec not available; (6) Diabetes mellitus Current Visit: Yes Status: Chronic Assessment and plan: Patient has poor oral intake closely monitor blood glucose Accucheck blood glucose monitoring with sliding scale insulin as needed; diabetic diet as tolerated; Qualifiers: Diabetes mellitus type: type 2 Diabetes mellitus fpc insulin use: without watermaster use Diabetes mellitus complication status: with unspecified complications Qualified Code(s): E11.8 - Type 2 diabetes mellitus with unspecified complications (7) Depression Current Visit: Yes Status: Chronic Assessment and plan: -Manage per psych Qualifiers: Depression Type: unspecified Qualified Code(s): F32.9 - Major depressive disorder, single episode, unspecified (8) UTI (urinary tract infection) Current Visit: Yes Status: Suspected Assessment and plan: UA suggestive of UTI, send urine culture; start IV Rocephin;-awaiting culture results we will adjust accordingly Qualifiers: Urinary tract infection type: site unspecified Hematuria presence: without hematuria Qualified Code(s): N39.0 - Urinary tract infection, site not specified - Time Spent With Patient Total time spent is greater than 50% in coordination of care (as documented) at patient's floor/unit and/or counseling patient: - Subjective Interval history: Patient was seen and examined at bedside. Presently patient continues to experience hearing voices that tell her not to eat food otherwise her children will be harmed. She did eat part of a sandwich last night she denies eating breakfast. Encourage staff to give patient sitting which is since that is what she prefers at this time. I did review treatment plan with patient and significant other who is at bedside currently awaiting urine culture results. Verbalized understanding - Constitutional Vitals: Temp Pulse Resp BP Pulse Ox 98.3 F 90 20 114/78 97 10/03/17 11:13 10/03/17 11:13 10/03/17 11:13 10/03/17 11:13 10/03/17 11:13 General appearance: Present: A&O X 1 (legally blind; somnolent). Absent: answers questions appropriately - Head Head exam: Present: atraumatic, normocephalic - Eye Eye exam: Present: PERRL, conjuntiva pink, sclera anicteric Pupils: Present: PERRL - Neck Neck exam general surgery: Present: supple, trachea midline. Absent: lymphadenopathy - Respiratory Respiratory exam: Present: CTAB. Absent: accessory muscle use, rales, rhonchi, wheezes - Cardiovascular Cardiovascular exam: Present: RRR, +S1, +S2. Absent: diastolic murmur, gallop, rubs, systolic murmur - GI/Abdominal GI/Abdominal exam: Present: normal bowel sounds, soft, no peritoneal signs. Absent: distended, tenderness - Extremities Exam Extremities exam: Present: warm, radial pulses palpable and symmetrical. Absent : calf tenderness, cyanotic, pedal edema - Neurological Exam Neurological exam: Present: CN II-XII intact, oriented X3, no focal deficits. Absent: pronater drift, facial droop, speech deficit - Skin Skin exam: Present: dry, intact Internal Medicine: Result - Labs CBC & Chem 7: 10/03/17 05:29 10/03/17 05:29 Labs: Short CBC 10/03/17 Range/Units 05:29 WBC 8.2 (4.3-11.1) K/mcL Hgb 15.0 (11.5-15.4) g/dL Hct 45.7 H (35.3-44.9) % Plt Count 195 (140-400) K/mcL Neutrophils # 3.1 (1.6-8.9) K/mcL BMP 10/03/17 05:29 Sodium 139 Potassium 2.8 L Chloride 107 Carbon Dioxide 23 BUN 6 Creatinine 0.62 Glucose 178 H Calcium 8.5 L Consult Discharge Plan - Plan Referrals: NONE,PCP [Primary Care Provider] -
[2017-10-03] MEDS: Multivit/Ca/Min/Fe/FA 1 TAB TABLET PO SCH (16:11)
[2017-10-03] MEDS ORDERED: OLANZapine 10 MG TAB.RAPDIS PO SCH (21:00)
[2017-10-03] MEDS ORDERED: Mirtazapine 15 MG TABLET PO SCH (21:00)
[2017-10-04] MEDS: *HR* Heparin 5,000 UNIT/ML VIAL SQ SCH ×2 (05:49→13:53)
[2017-10-04] MEDS: Insulin LISPRO 300 UNITS/3 ML VIAL SQ SCH ×3 (05:50→16:41)
[2017-10-04 06:36] LABS: Basophils # 0.1 K/mcL (0.0-0.2); Basophils % 0.7 %; Eosinophils # 0.2 K/mcL (0.0-0.6); Eosinophils % 2.2 %; Hematocrit 46.4 % (35.3-44.9); Hemoglobin 15.9 g/dL (11.5-15.4); Immature Granulocytes % 0.2 % (0-4); Lymphocytes # 5.1 K/mcL (0.6-4.6); Lymphocytes % 57.9 %; Mean Corpuscular HGB Conc 34.3 g/dL (31.6-35.5); Mean Corpuscular Hemoglobin 30.4 pg (28.0-33.3); Mean Corpuscular Volume 88.7 fL (83.0-100.0); Mean Platelet Volume 13.8 fL (9.4-12.4); Monocytes # 1.3 K/mcL (0.0-1.3); Monocytes % 14.9 %; Neutrophils # 2.1 K/mcL (1.6-8.9); Platelet Count 198 K/mcL (140-400); Red Blood Count 5.23 M/mcL (3.82-4.97); Red Cell Distribution Width 17.2 % (11.5-14.5); Segmented Neutrophils % 24.1 %
[2017-10-04 06:38] LABS: BUN/Creatinine Ratio 9 (6-26); Blood Urea Nitrogen 5 mg/dL (6-20); Calcium 8.6 mg/dL (8.6-10.3); Carbon Dioxide 23 mEq/L (23-29); Chloride 109 mEq/L (98-107); Glucose 75 mg/dL (70-105); Osmolality,Calculated 294 (280-300); Potassium 3.3 mEq/L (3.5-5.1); Sodium 144 mEq/L (136-145); eGFR For African Americans > 60 (> 60); eGFR For Non-African Americans > 60 (> 60)
[2017-10-04] MEDS ORDERED: Metoprolol XL (24 HR) Succ 50 MG TAB.ER.24H PO SCH (09:00)
[2017-10-04] MEDS: cefTRIAXone 1,000 MG in Water for inj. (sterile) 20 ML 10 ML IVP SCH (09:14)
[2017-10-04] MEDS: Multivit/Ca/Min/Fe/FA 1 TAB TABLET PO SCH (09:14)
[2017-10-04] MEDS ORDERED: Potassium Chloride Elixir 20 MEQ/15 ML UDC PO ONE (11:08)
--- NOTE | 2017-10-04 11:27 | Internal Med Progress Note ---
Date of Encounter: 10/04/17 Time of Encounter: 11:27 - Assessment and plan (1) Erythrocytosis Current Visit: Yes Status: Chronic (2) Failure to thrive in adult Current Visit: Yes Status: Acute (3) Auditory hallucinations Current Visit: Yes Status: Chronic (4) Hypernatremia Current Visit: Yes Status: Acute (5) Essential hypertension Current Visit: Yes Status: Chronic (6) Diabetes mellitus Current Visit: Yes Status: Chronic Qualifiers: Diabetes mellitus type: type 2 Diabetes mellitus detention insulin use: without international travel consultant use Diabetes mellitus complication status: with unspecified complications Qualified Code(s): E11.8 - Type 2 diabetes mellitus with unspecified complications (7) Depression Current Visit: Yes Status: Chronic Qualifiers: Depression Type: unspecified Qualified Code(s): F32.9 - Major depressive disorder, single episode, unspecified (8) UTI (urinary tract infection) Current Visit: Yes Status: Suspected Qualifiers: Urinary tract infection type: site unspecified Hematuria presence: without hematuria Qualified Code(s): N39.0 - Urinary tract infection, site not specified - Time Spent With Patient Total time spent is greater than 50% in coordination of care (as documented) at patient's floor/unit and/or counseling patient: - Subjective Interval history: Patient was seen and examined at bedside. Presently patient continues to experience hearing voices that tell her not to eat food otherwise her children will be harmed. She did eat part of a sandwich last night she denies eating breakfast. Encourage staff to give patient sitting which is since that is what she prefers at this time. I did review treatment plan with patient and significant other who is at bedside currently awaiting urine culture results. Verbalized understanding - Constitutional Vitals: Temp Pulse Resp BP Pulse Ox 98.3 F 83 14 105/73 95 10/04/17 06:45 10/04/17 06:45 10/04/17 06:45 10/04/17 06:45 10/04/17 06:45 General appearance: Present: A&O X 1 (legally blind; somnolent). Absent: answers questions appropriately Internal Medicine: Result - Labs CBC & Chem 7: 10/04/17 05:41 10/04/17 05:41 Labs: Short CBC 10/04/17 Range/Units 05:41 WBC 8.8 (4.3-11.1) K/mcL Hgb 15.9 H (11.5-15.4) g/dL Hct 46.4 H (35.3-44.9) % Plt Count 198 (140-400) K/mcL Neutrophils # 2.1 (1.6-8.9) K/mcL BMP 10/04/17 05:41 Sodium 144 Potassium 3.3 L Chloride 109 H Carbon Dioxide 23 BUN 5 L Creatinine 0.54 L Glucose 75 Calcium 8.6 Consult Discharge Plan - Plan Referrals: NONE,PCP [Primary Care Provider] -
[2017-10-04 15:22] VITALS: BP 103/70
--- NOTE | 2017-10-04 17:59 | Discharge Summary ---
Date of Encounter: 10/04/17 Time of Encounter: 17:55 - Discharge Diagnosis (1) Erythrocytosis Priority: Secondary Status: Chronic Assessment and Plan: could be volume depletion vs sleep apnea; was evaluated by Hematology for possible primary erythrocytosis, workup negative; (2) Failure to thrive in adult Priority: Primary Status: Acute Assessment and Plan: most likely secondary to psychiatry issues- patient did receive IV fluids she is presently, she has eaten several sandwiches since she has been admitted she was seen by dietary recommending ensure supplements. (3) Auditory hallucinations Priority: Primary Status: Acute Assessment and Plan: Continues to experience auditory hallucinations -hearing voices telling her not to eat otherwise her children will be harmed psychiatry evaluated patient; patient will be admitted to for further workup and evaluation (4) Hypernatremia Priority: Secondary Status: Resolved Assessment and Plan: due to dehydration and poor oral intake; this has improved continue IV hydration (5) Essential hypertension Priority: Secondary Status: Chronic (6) Diabetes mellitus Priority: Secondary Status: Chronic Assessment and Plan: Patient's oral intake is slowly improving. For now we will hold antidiabetic medications once patient is consuming meals on a regular basis. Continue to monitor blood sugars and treat any hypoglycemia Qualifiers: Diabetes mellitus type: type 2 Diabetes mellitus penitentiary insulin use: without parts counterman use Diabetes mellitus complication status: with unspecified complications Qualified Code(s): E11.8 - Type 2 diabetes mellitus with unspecified complications (7) Depression Priority: Primary Status: Acute Qualifiers: Depression Type: unspecified Qualified Code(s): F32.9 - Major depressive disorder, single episode, unspecified (8) UTI (urinary tract infection) Priority: Secondary Status: Suspected Assessment and Plan: 1 patient signing experiencing any urinary symptoms-urinalysis grossly contaminated-she did receive 2 days of Rocephin she is afebrile do not suspect this is UTI Qualifiers: Urinary tract infection type: site unspecified Hematuria presence: without hematuria Qualified Code(s): N39.0 - Urinary tract infection, site not specified Hospital course: Ms. Kay is a 41 year old female past medical history of diabetes high blood pressure depression and possible schizophrenia patient is blind. She was brought to the emergency department by her significant other after experiencing poor oral intake. She has a history of depression for at least last 5 years she has been stable previously on Seroquel however she has been experiencing auditory and visual hallucinations over the past 5 months spirits are telling her to do something and she was talking to the spirits. Over the past month and a half she felt the food was being poisoned at home and insisted on eating out or may not even all over the past 2 weeks she is completely stopped eating or taking her medications. Voices are telling her that if she eats her children will be harmed. Lab work did show patient was dehydrated with some hypernatremia urinalysis was obtained, concern for UTI initiated on Rocephin for 2 days. Urine culture grossly contaminated. Patient was seen by psychiatry recommending inpatient treatment once medically stable. Patient slowly began to eat over the next 2 days. She has been taking medications and was resumed on her home dose of Zyprexa and Risperdal. Patient's lab work has improved vital signs are stable she is taking her medications. She will be discharged to 1A psychiatry unit for further evaluation and treatment Discharge discussed with: patient - Time Spent with Patient Total time spent providing and/or coordinating discharge services: - Discharge Medications Home Medications: OLANZapine [Zyprexa Zydis] 10 mg PO HS 7 Days #7 tab.rapdis 09/21/17 [Rx] Haloperidol Oral Conc [Haldol] 2 mg PO DAILY 10/02/17 [History] Metoprolol Succinate [Toprol Xl] 100 mg PO DAILY 10/02/17 [History] Mirtazapine [Remeron] 15 mg PO HS 10/02/17 [History] risperiDONE [RisperDAL] 0.25 mg PO TID 10/02/17 [History] Allergies/Adverse Reactions: 3 Allergy/AdvReac Type Severity Reaction Status Date / Time Sulfa (Sulfonamide Allergy Hives Verified 09/20/17 16:46 Antibiotics) Date of admission: 10/02/17 01:40 Primary care physician: PCP NONE Consults: 10/02/17 03:20 Consult to Psychiatry [CONS] Routine Consulting Provider: Psychiatry Roseanne Reason for Consult: Refuses to eat due to auditory hallucinations about food poisoning, going on for 6 weeks Call Completed: No 10/02/17 11:31 dietary consult [Consult to Nutrition] [CONS] Routine Comment: Consulting Provider: NUTRITION Reason for Dietary Consult: PO Supplementation Other:: PT HAS NOT EATEN IN 15 DAYS Discharging clinician: Zoey Soler Anticipated date of discharge: 10/04/17 - Constitutional Vitals: Temp Pulse Resp BP Pulse Ox 98.0 F 86 14 103/70 97 10/04/17 15:21 10/04/17 15:21 10/04/17 15:21 10/04/17 15:21 10/04/17 15:21 General appearance: Present: A&O X 1 (legally blind; somnolent). Absent: answers questions appropriately - Head Head exam: Present: atraumatic, normocephalic - Eye Eye exam: Present: PERRL, conjuntiva pink, sclera anicteric - Neck Neck exam general surgery: Present: supple, trachea midline. Absent: lymphadenopathy - Respiratory Respiratory exam: Present: CTAB. Absent: accessory muscle use, rales, rhonchi, wheezes - Cardiovascular Cardiovascular exam: Present: RRR, +S1, +S2. Absent: diastolic murmur, gallop, rubs, systolic murmur - GI/Abdominal GI/Abdominal exam: Present: normal bowel sounds, soft, no peritoneal signs. Absent: distended, tenderness - Extremities Exam Extremities exam: Present: warm, radial pulses palpable and symmetrical. Absent : calf tenderness, cyanotic, pedal edema - Neurological Exam Neurological exam: Present: CN II-XII intact, oriented X3, no focal deficits. Absent: pronater drift, facial droop, speech deficit - Skin Skin exam: Present: dry, intact - Patient Status Disposition: Home, Self-Care Condition: Good Overall status at discharge: patient is not back to baseline - Discharge Instructions Follow Up With: NONE,PCP [Primary Care Provider] - - Diet and Activity Activity: increase activity as tolerated Diet: advance to your usual diet
== END 2017-10-04 18:53 | disposition other institution (70) ==
LOC: EMEROO 17:47 → 3BNU 17:47
PROVIDERS: ADMIT Internal Medicine; ATTEND Internal Medicine

== ENCOUNTER 2017-10-04 19:00 | Inpatient (IN) ==
[2017-10-04] MEDS ORDERED: Haloperidol Lactate 5 MG/ML VIAL IM PRN (19:04)
[2017-10-04] MEDS ORDERED: *HR* LORazepam 2 MG/ML VIAL IM PRN (19:04)
[2017-10-04] MEDS ORDERED: MOM Conc 10 ML UD.LIQ PO PRN (19:04)
[2017-10-04] MEDS ORDERED: *HR* LORazepam 1 MG TABLET PO PRN (19:04)
[2017-10-04] MEDS ORDERED: Mag Hydrox/Al Hydrox/Simeth 30 ML UDC PO PRN (19:04)
[2017-10-04] MEDS: *HR* LORazepam 1 MG TABLET PO SCH (21:04)
[2017-10-04] MEDS: Mirtazapine 15 MG TABLET PO SCH (21:05)
[2017-10-05] MEDS: *HR* LORazepam 1 MG TABLET PO SCH ×2 (09:37→20:34)
[2017-10-05] MEDS: Metoprolol XL (24 HR) Succ 50 MG TAB.ER.24H PO SCH (09:38)
--- NOTE | 2017-10-05 11:00 | Psychiatry History & Physical ---
Date of Encounter: 10/05/17 Time of Encounter: 10:35 History of Present Illness Patient Stated Chief Complaint: "I think I can go now." Medicare Admission Attestation: For traditional Medicare patients the provided hospital inpatient services are reasonable and necessary and in the case of services not specified as inpatient -only under 42 CFR 419.22 (n), that they are appropriately provided as inpatient services in accordance 42 CFR 412.3. For Critical Access Hospital the patient may reasonably be expected to be discharged or transferred to a hospital within 96 hours after admission to the Critical Access Hospital. Admitted From: Intrahospital Transfer History of Present Illness: Ms. Kay is a 41 year old female with a history of delusions and psychosis who presented to the hospital with failure to thrive, not eating secondary to delusional thoughts that if she ate something bad would happen to her son. She was initially stabilized on the medical floor and treated for UTI. Urine cultures were negative. Patient was transferred to for psychiatric stabilization. Patient continues to report thoughts that the world will end. She also reports that she hears voices telling her not to take the medications. She is eating better and is willing to eat now but very suspicious about medications. Patient is very anxious because she cannot be with her boyfriend while she is here on the psychiatric unit. She does have slowed responses that may be thought blocking. She does admit to auditory hallucinations. She does admit to fear that her son may be her if she takes medications. She denies issues with the Ativan and states that it helped some with her anxiety. Her ability to give history is limited. S he denies sleep issues. Past Med Surg Social Fam HX - Past Medical History Medical history: diabetes, hypertension, other - Past Psychiatric History Psychiatric history: Reports: no psych history, other (psychosis) Past psychiatric history details: Patient developed delusional thinking several months ago. Medications have been changed multiple times by outpatient provider. Family psychiatric history: No Family History of Suicide: None (so) - Past Surgical History Surgical History: non-contributory, hysterectomy, orthopedic, other - Social History Smoking Status: Former smoker Smokeless Tobacco Status: No Alcohol use: none Drug use: none - Family History Father Hx Family Endocrine Disorder: Yes (diabetes) Medications & Allergies OLANZapine [Zyprexa Zydis] 10 mg PO HS 7 Days #7 tab.rapdis 09/21/17 [Rx] Haloperidol Oral Conc [Haldol] 2 mg PO DAILY 10/02/17 [History] Metoprolol Succinate [Toprol Xl] 100 mg PO DAILY 10/02/17 [History] Mirtazapine [Remeron] 15 mg PO HS 10/02/17 [History] risperiDONE [RisperDAL] 0.25 mg PO TID 10/02/17 [History] 3 Allergy/AdvReac Type Severity Reaction Status Date / Time Sulfa (Sulfonamide Allergy Hives Verified 09/20/17 16:46 Antibiotics) Review of Systems ROS limited: due to patient condition (due to patient's mental status. (slowed thinking, psychosis)) Psychiatric: Reports: depression, anxiety, abnormal sleep pattern, auditory hallucinations, other (delusions). Denies: suicidal ideation Exam - HEENT Head exam IM: Present: normocephalic Eye exam IM: Present: normal appearance (corneal opacity) ENT exam IM: Present: mucous membranes moist - Neurological Neurological exam: Present: alert (patient is blind) - Respiratory Respiratory exam IM: Present: CTAB. Absent: accessory muscle use - GI/Abdominal GI/Abdominal exam IM: Present: normal bowel sounds, soft. Absent: no peritoneal signs - Extremities Extremities exam IM: Present: full ROM, warm - Skin Skin exam IM: Present: dry, normal color, warm - Constitutional Vitals: Temp Pulse Resp BP 98.2 F 107 18 96/74 10/05/17 09:30 10/05/17 09:30 10/05/17 09:30 10/05/17 09:30 General appearance: unkempt, disheveled, obese - Musculoskeletal Gait: other (patient sitting in bed) Station: stooped Strength & Tone: mild weakness, other (patient had difficulty participating in this portion of phsyical exam.) - Psychiatric Patient Orientation: Yes Person, Yes Place Level of alertness: Alert Behavior: cooperative, anxious Psychomotor activity: Slowed Eye Contact: No Eye Contact (patient is blind) Mood Description: Euthymic/stable Affect description: blunted Speech Volume: Soft/Quiet Speech pattern: slowed Language & Vocabulary: limited Thought Process: [place] Thought Content: No Suicidal ideation, No Homicidal ideation, Yes Paranoid delusion Perceptual Disturbances: Yes Reacting to internal stimuli, Yes Auditory hallucinations Attention Span Ability: Unable to Focus Memory Description: Immediate Intact, Recent Impaired, Remote Impaired Patient Reliability: Questionable Historian Fund of knowledge: No abstraction ability, Yes below average, No aware of current events Intelligence Estimate: Below Average Judgment: Limited Insight: Minimal Assessment and Plan (1) Schizophrenia Current visit: No Status: Acute Plan: Admit inpatient for safety and stabilization, Close observation, Suicide Precautions per unit protocol, Encourage participation in unit milieu, Group Therapy, Monitor sleep, Monitor appetite Additional Plan: Start Invega 3 mg by mouth daily. Encourage daily by mouth intake. Encourage appropriate ADLs. Monitor for improvement in symptoms. Monitor for side effects of medications. Encourage participation in therapeutic milieu when possible. We will stay in close contact with family including daughter and boyfriend. Risks, benefits, side effects, alternatives discussed w/pt: Yes Patient agreeable to treatment: Yes Plans for Post Hospital Care: Home Estimated Length of Stay (Days): 3 Qualifiers: Schizophrenia type: paranoid schizophrenia Qualified Code(s): F20.0 - Paranoid schizophrenia (2) Anxiety Current visit: Yes Status: Acute Plan: Admit inpatient for safety and stabilization, Close observation, Suicide Precautions per unit protocol, Encourage participation in unit milieu, Group Therapy, Monitor sleep, Monitor appetite Additional Plan: Continue Ativan 0.5 mg by mouth twice a day. Consider increasing as tolerated. Risks, benefits, side effects, alternatives discussed w/pt: Yes Patient agreeable to treatment: Yes Plans for Post Hospital Care: Home Estimated Length of Stay (Days): 3 (3) Failure to thrive in adult Current visit: No Status: Acute Plan: Admit inpatient for safety and stabilization Additional Plan: Appears to be resolving. Continue to encourage by mouth intake. Risks, benefits, side effects, alternatives discussed w/pt: Yes Patient agreeable to treatment: Yes
[2017-10-05] MEDS: Mirtazapine 15 MG TABLET PO SCH (20:33)
[2017-10-05] MEDS: Ibuprofen 400 MG TABLET PO PRN (20:34)
[2017-10-06] MEDS: *HR* LORazepam 1 MG TABLET PO SCH ×2 (10:47→20:52)
[2017-10-06] MEDS: Metoprolol XL (24 HR) Succ 50 MG TAB.ER.24H PO SCH (10:59)
--- NOTE | 2017-10-06 16:11 | Psychiatry Progress Note ---
Date of Encounter: 10/06/17 Time of Encounter: 15:00 Subjective Interval history: Pt is a 21 yo, , female, who presents for mood and depression. Pt noted that she feels she is improving slowly. Pt noted she is optimistic to return home with her boyfriend. Pt denied any side effects to current medications. Pt noted she felt safe and comfortable on the unit. Pt was in agreement with treatment plan. Pt noted that she is doing pretty good today. Pt noted she slept 8 hours last night. Pt noted her appetite is okay. Pt rated her depression a 9, on a scale of zero to ten with ten being the worst and zero being none. Pt rate her anxiety a 5, on the same scale. Pt denied any visual hallucinations, however noted chronic auditory hallucinations of voices stating the end of time is near. Pt denied any thoughts to harm herself or anyone else. Tobacco: Denies Alcohol: Denies Street: Denies Caffeine: Denies 1. Interval hx 2. Continue current medications 3. Review current labs 4. Pt had an opportunity to ask questions and discuss current treatment plan. 5. Supportive therapy was provided 6. Pt encouraged to consider group or individual therapy 7. Pt was in agreement with treatment plan. 8. Pt was educated on the risks benefits and side effects of current medications. Review of Systems Psychiatric: Reports: depression, anxiety, abnormal sleep pattern, auditory hallucinations, other (delusions). Denies: suicidal ideation Results - Vital Signs Vital Signs: Temp Pulse Resp BP 97.4 F L 68 16 80/59 10/06/17 09:00 10/06/17 09:00 10/06/17 09:00 10/06/17 09:00 - Labs Labs: Laboratory Results - last 24 hr 10/05/17 10/06/17 20:18 10:53 POC Glucose 105 H 108 H Consult Discharge Plan - Plan Referrals: [facility] Information Assistant [facility] [Outside] Psychiatry Exam - Constitutional Vitals: Temp Pulse Resp BP 97.4 F L 68 16 80/59 10/06/17 09:00 10/06/17 09:00 10/06/17 09:00 10/06/17 09:00
[2017-10-06] MEDS: Ibuprofen 400 MG TABLET PO PRN (20:51)
[2017-10-06] MEDS: Mirtazapine 15 MG TABLET PO SCH (20:52)
[2017-10-06] MEDS: hydrOXYzine pamoate 25 MG CAPSULE PO PRN (20:52)
[2017-10-07] MEDS: Metoprolol XL (24 HR) Succ 50 MG TAB.ER.24H PO SCH ×2 (10:28→10:33)
[2017-10-07] MEDS: *HR* LORazepam 1 MG TABLET PO SCH ×2 (10:29→21:38)
--- NOTE | 2017-10-07 13:41 | Psychiatry Progress Note ---
Date of Encounter: 10/07/17 Time of Encounter: 12:45 Subjective Interval history: Pt is a 41 yo, , female, legally blind, women, who presents for mood and depression. Pt noted that she continues to improving slowly. Pt noted she remains optimistic to return home with her boyfriend. Pt denied any side effects to current medications. Pt noted she continues to feel safe and comfortable on the unit. Pt was in agreement with treatment plan. Pt noted that she is doing better today. Pt noted she slept 8 hours last night. Pt noted her appetite is bettter. Pt rated her depression a better a little less may be a 7, on a scale of zero to ten with ten being the worst and zero being none. Pt rate her anxiety a 6, on the same scale. Pt denied any current auditory or visual hallucinations. Pt denied any thoughts to harm herself or anyone else. Tobacco: Denies Alcohol: Denies Street: Denies Caffeine: Denies MSE: Alert and Oriented x4 Appearance: appropriately groomed dressed in hospital pajamas, disocoloration of her pupils Behavior: friendly, courteous, polite Speech: Fluent, normal tone, normal rate Mood: depressed Affect: mood congruent Thought content: no HI noted, no SI noted, no current delusions noted Psychosis: none noted currently not responding to internal stimuli. Thought Process: Linear coherent goal directed Judgment: questionable. Insight: questionable. 1. Interval hx 2. Continue current medications 3. Review current labs 4. Pt had an opportunity to ask questions and discuss current treatment plan. 5. Supportive therapy was provided 6. Pt encouraged to consider group or individual therapy 7. Pt was in agreement with treatment plan. 8. Pt was educated on the risks benefits and side effects of current medications. 9. Plan to coordinate with boyfriend to establish collateral for D/C home. Review of Systems Psychiatric: Reports: depression, anxiety, abnormal sleep pattern, auditory hallucinations, other (delusions). Denies: suicidal ideation Results - Vital Signs Vital Signs: Temp Pulse Resp BP 98.1 F 101 18 93/65 10/07/17 09:00 10/07/17 09:00 10/07/17 09:00 10/07/17 09:00 - Labs Labs: Laboratory Results - last 24 hr 10/07/17 10/07/17 10:26 11:25 POC Glucose 68 L 135 H Assessment and Plan (1) Auditory hallucinations Current visit: No Status: Acute (2) Depression Current visit: No Status: Acute Qualifiers: Depression Type: unspecified Qualified Code(s): F32.9 - Major depressive disorder, single episode, unspecified (3) Schizophrenia Current visit: No Status: Acute Risks, benefits, side effects, alternatives discussed w/pt: Yes Patient agreeable to treatment: Yes Qualifiers: Schizophrenia type: paranoid schizophrenia Qualified Code(s): F20.0 - Paranoid schizophrenia Consult Discharge Plan - Plan Additional Instructions: Plan to coordinate with boyfriend, for appropriate discharge planning Referrals: [facility] [place] [facility] [Outside] Psychiatry Exam - Constitutional Vitals: Temp Pulse Resp BP 98.1 F 101 18 93/65 10/07/17 09:00 10/07/17 09:00 10/07/17 09:00 10/07/17 09:00
[2017-10-07] MEDS: Mirtazapine 15 MG TABLET PO SCH (21:37)
[2017-10-07] MEDS: hydrOXYzine pamoate 25 MG CAPSULE PO PRN (21:37)
[2017-10-08 10:04] VITALS: BP 96/75
[2017-10-08] MEDS: Metoprolol XL (24 HR) Succ 50 MG TAB.ER.24H PO SCH (10:04)
[2017-10-08] MEDS: *HR* LORazepam 1 MG TABLET PO SCH (10:06)
--- NOTE | 2017-10-08 10:25 | Discharge Summary ---
Date of Encounter: 10/08/17 Time of Encounter: 11:00 Diagnosis - Discharge Diagnosis (1) Auditory hallucinations Priority: Primary Status: Acute (2) Depression Priority: Primary Status: Acute Qualifiers: Depression Type: unspecified Qualified Code(s): F32.9 - Major depressive disorder, single episode, unspecified (3) Schizophrenia Priority: Primary Status: Acute Qualifiers: Schizophrenia type: paranoid schizophrenia Qualified Code(s): F20.0 - Paranoid schizophrenia Medications - Discharge Medications Prescriptions: Paliperidone [Invega] 3 mg PO DAILY #30 tab.er.24 OLANZapine [Zyprexa Zydis] 10 mg PO HS 7 Days #7 tab.rapdis 09/21/17 [Rx] Metoprolol Succinate [Toprol Xl] 100 mg PO DAILY 10/02/17 [History] Mirtazapine [Remeron] 15 mg PO HS 10/02/17 [History] risperiDONE [RisperDAL] 0.25 mg PO TID 10/02/17 [History] Paliperidone [Invega] 3 mg PO DAILY #30 tab.er.24 10/08/17 [Rx] 3 Allergy/AdvReac Type Severity Reaction Status Date / Time Sulfa (Sulfonamide Allergy Hives Verified 09/20/17 16:46 Antibiotics) Provider Date of admission: 10/04/17 19:00 Primary care physician: PCP NONE Discharging clinician: Tapan Walden Psychiatry Exam - Constitutional Vitals: Temp Pulse Resp BP 98.2 F 94 16 96/75 10/08/17 09:00 10/08/17 09:00 10/08/17 09:00 10/08/17 09:00 General appearance: age & developmentally appropriate, well-groomed - Musculoskeletal Gait: unsteady Station: slouched Strength & Tone: mild weakness - Psychiatric Patient Orientation: Yes Person, Yes Time, Yes Place, Yes Circumstance Level of alertness: Alert Behavior: calm Psychomotor activity: Normal Eye Contact: Maintains Eye Contact Mood Description: Euthymic/stable Affect description: congruent with mood Speech Volume: Normal Speech pattern: normal rate, normal rhythm, normal tone, fluent Language & Vocabulary: consistent with education Thought Process: Intact Thought Content: Yes Intact Perceptual Disturbances: Yes Reacting to internal stimuli Attention Span Ability: Capable of Focused Attention Memory Description: Grossly Intact Patient Reliability: Reliable Historian Fund of knowledge: Yes average Intelligence Estimate: Average Judgment: Fair Insight: Full Hospital Course Hospital course: Pt is a 41 yo, , female, legally blind, women, who presents for mood and depression. Pt noted that she continues to improving to the point she feels safe and comfortable for D/C home.. Pt noted she remains optimistic and in agreement to return home with her boyfriend. Pt denied any side effects to current medications. Pt noted she continues to feel safe and comfortable on the unit. Pt was in agreement with treatment plan. Pt noted that she is doing better today. Pt noted she slept 8 hours last night. Pt noted her appetite is bettter. Pt rated her depression a better a 0 today, on a scale of zero to ten with ten being the worst and zero being none. Pt rate her anxiety a 2, on the same scale. Pt denied any current auditory or visual hallucinations. Pt denied any thoughts to harm herself or anyone else. Tobacco: Denies Alcohol: Denies Street: Denies Caffeine: Denies MSE: Alert and Oriented x4 Appearance: appropriately groomed dressed in hospital pajamas, disocoloration of her pupils Behavior: friendly, courteous, polite Speech: Fluent, normal tone, normal rate Mood: much better Affect: mood congruent Thought content: no HI noted, no SI noted, no current delusions noted Psychosis: none noted currently not responding to internal stimuli. Thought Process: Linear coherent goal directed Judgment: fair. Insight: questionable. 1. Interval hx 2. Continue current medications 3. Review current labs 4. Pt had an opportunity to ask questions and discuss current treatment plan. 5. Supportive therapy was provided 6. Pt encouraged to consider group or individual therapy 7. Pt was in agreement with treatment plan. 8. Pt was educated on the risks benefits and side effects of current medications. 9. Plan to coordinate with boyfriend to establish collateral for D/C home. 10. Take all medications as prescribed 11. abstain from any alcohol or illicit substances 12. Follow up with all scheduled appointments. - Time Spent with Patient Total time spent providing and/or coordinating discharge services: Assessment and Plan - Patient/Caregiver Discharge Instructions Activity: resume usual activities as tolerated Diet: regular diet Additional Instructions: PT to D/C home with full assist from family support. - Follow up Plan Follow up with: [facility] [employer] [place] [Outside] - 10/15/17 11:00 am (The above appointment is with Vaibhav Mendes for primary healthcare services. You will also see Dr. Cheng for outpatient psychiatric assessment and medication management services on 10/17/2017 at 9:15 AM. You will then see Berta for outpatient mental health counseling services the same day, 10/17/2017, at 10:00 AM.) Overall status at discharge: patient is back to baseline Disposition: Home Health Service Quality - Multiple Antipsychotics Patient discharged on 2 or more antipsychotic medications: No
== END 2017-10-08 12:15 | disposition home health service (06) | DRG 750 ==
LOC: SUATTDRO 19:00 → 1ANU 19:00
PROVIDERS: ADMIT Student in an Organized Health Care Education/Training Program; ATTEND General Practice